=== PATIENT | female | born 1995 | race Caucasian/White ===

== ENCOUNTER → 2016-08-23 | Outpatient (CLI) | payer OTHER ==
[~2016-08-23] MED LIST: CELEXA10 MG PO
== END ==
LOC: HEART 5 08-16 13:30
DX: R42 Dizziness and giddiness (principal)

== ENCOUNTER 2020-08-25 07:02 | Emergency (ER) | payer BC ==
[~2020-08-25 07:02] MED LIST changes: +COLACE 100MG C100 MG PO
[2020-08-25 08:18] LABS: HEMOGLOBIN 13.8 gm/dl (12.3-15.3); RED BLOOD COUNT 4.62 M/UL (4.00-5.10); WHITE BLOOD COUNT 6.1 K/UL (4.5-11.0)
[2020-08-25 08:37] LABS: BUN/CREATININE RATIO 11 (0-10)
== END 2020-08-25 11:26 | disposition home or self-care (01) ==
LOC: ER1 07:02
PROVIDERS: Emergency Medicine
DX: N83.201 Unspecified ovarian cyst, right side (principal); Z88.2 Allergy status to sulfonamides; Z91.041 Radiographic dye allergy status; Z20.822 Contact with and (suspected) exposure to COVID-19
CPT/HCPCS: 76830; 80053; 83605; 83690; 84703; 85025; 96374; 96375; 99284; J1885; J2405; J7030; U0002

== ENCOUNTER → 2020-10-12 | Outpatient (CLI) | payer BC ==
[2020-10-12 11:55] LABS: HEMOGLOBIN 13.5 gm/dl (12.3-15.3); RED BLOOD COUNT 4.46 M/UL (4.00-5.10); WHITE BLOOD COUNT 7.7 K/UL (4.5-11.0)
== END ==
LOC: LAB 11:03
PROVIDERS: Family Medicine
DX: R79.89 Other specified abnormal findings of blood chemistry (principal); R53.83 Other fatigue
CPT/HCPCS: 36415; 84443; 85025

== ENCOUNTER → 2021-02-23 | Outpatient (CLI) | payer BC | LOC: US 11:24 → EXRD 03-01 14:00 | DX: E04.9 Nontoxic goiter, unspecified (principal) | CPT/HCPCS: 76536 ==

== ENCOUNTER → 2021-10-14 | Day surgery (SDC) | payer BC ==
[~2021-10-14] VITALS: Ht 167.6 cm; Wt 86.6 kg
[~2021-10-14] MED LIST changes: +ULTRAM50 MG PO
== END | disposition home or self-care (01) ==
LOC: OR 05:41
DX: G56.01 Carpal tunnel syndrome, right upper limb (principal); G56.21 Lesion of ulnar nerve, right upper limb; Z88.5 Allergy status to narcotic agent; Z88.1 Allergy status to other antibiotic agents; Z91.041 Radiographic dye allergy status
CPT/HCPCS: 84703; J0690; J1100; J1200; J2001; J2250; J2704; J3010; J7120

== ENCOUNTER → 2021-12-30 | Day surgery (SDC) | payer BC ==
[~2021-12-30] VITALS: Ht 167.6 cm; Wt 87.5 kg
== END | disposition home or self-care (01) ==
LOC: OR 05:58
DX: G56.21 Lesion of ulnar nerve, right upper limb (principal); S53.101A Unspecified subluxation of right ulnohumeral joint, initial encounter; Z88.5 Allergy status to narcotic agent; Z88.1 Allergy status to other antibiotic agents; Z91.041 Radiographic dye allergy status; X58.XXXA Exposure to other specified factors, initial encounter
CPT/HCPCS: 84703; J0592; J0690; J1100; J1885; J2001; J2250; J2405; J2704; J2795; J3010

== ENCOUNTER → 2022-02-02 | Outpatient (CLI) | payer BC ==
[2022-02-02 13:52] LABS: HEMOGLOBIN 13.7 gm/dl (12.3-15.3); RED BLOOD COUNT 4.63 M/UL (4.00-5.10); WHITE BLOOD COUNT 6.4 K/UL (4.5-11.0)
[2022-02-02 14:14] LABS: BUN/CREATININE RATIO 13 (0-10)
== END ==
LOC: LAB 13:10
PROVIDERS: Internal Medicine Cardiovascular Disease
DX: I49.8 Other specified cardiac arrhythmias (principal); R55 Syncope and collapse; R00.0 Tachycardia, unspecified
CPT/HCPCS: 36415; 80048; 80076; 84439; 84443; 84481; 85025